=== PATIENT | male | born 1970 | race Two or more races ===

== ENCOUNTER 2022-07-03 09:36 | Emergency (ER) | payer OTHER ==
[~2022-07-03] VITALS: Ht 172.7 cm; Wt 91.0 kg
[~2022-07-03 09:36] MED LIST: GABA300C OR; HYDR-1421 OR; MIR30T PO; effexor PO; klonopin; xopenex; xopenex PO
[2022-07-03] MEDS ORDERED: IPRATROPIUM BROM 0.5 MG/2.5ML INH SOL HHN ONE (10:00)
[2022-07-03] MEDS ORDERED: ALBUTEROL SULF 2.5 MG/0.5ML(0.5%) NEB SOLN HHN ONE (10:00)
[2022-07-03 10:38] LABS: Basophils # (auto) 0.1 10 ^3/uL (0-0.2); Basophils % (auto) 0.7 % (0.0-2.0); Eosinophils # (auto) 0.6 10 ^3/uL (0-0.8); Eosinophils % (auto) 4.2 % (0.0-7.0); Hematocrit 42.5 % (41.0-53.0); Hemoglobin 14.1 g/dL (13.5-17.5); Lymphocytes # (auto) 1.7 10 ^3/uL (0.4-5.4); Lymphocytes % (auto) 11.8 % (10.0-50.0); Mean Corpuscular Hemoglobin 28.4 pg (28.0-32.0); Mean Corpuscular Hgb Conc. 33.1 g/dL (32.0-36.0); Mean Corpuscular Volume 85.7 fL (80.0-100.0); Monocytes % (auto) 6.7 % (0.0-12.0); Neutrophils # (auto) 11.2 10 ^3/uL (1.6-8.6); Neutrophils % (auto) 76.6 % (37.0-80.0); Nucleated Red Blood Cells % 0.1 %; Red Blood Cells 4.96 10^6/uL (4.5-5.90); Red Cell Distribution Width 15.5 % (11.8-14.3); White Blood Cell 14.6 10^3/uL (4.4-10.8)
[2022-07-03 11:01] LABS: Albumin 3.3 g/dL (3.4-5.0); Anion Gap 8 (5-15); Blood Urea Nitrogen 8 mg/dL (7-18); Calcium 8.7 mg/dL (8.5-10.1); Carbon Dioxide 19 mmol/L (21-32); Chloride 110 mmol/L (98-107); Glucose 91 mg/dL (74-106); Magnesium 2.4 mg/dL (1.6-2.6); Sodium 137 mmol/L (136-145)
[2022-07-03 11:02] LABS: Alanine Aminotransferase 33 U/L (16-61); Aspartate Aminotransferase 35 U/L (15-37); GFR African American 101 mL/min; GFR Non-African American 84 mL/min
[2022-07-03 11:05] LABS: Alkaline Phosphatase 91 U/L (45-117); Bilirubin, Total 0.8 mg/dL (0.2-1.0); Total Protein 7.5 g/dL (6.4-8.2)
[2022-07-03] MEDS ORDERED: METH4PAK PO (13:01)
[2022-07-03] MEDS ORDERED: AZIT1POW PO (13:01)
[2022-07-03 13:53] VITALS: BP 129/73
== END 2022-07-03 13:54 | disposition home or self-care (01) ==
LOC: ER 09:36
DX: J18.0 Bronchopneumonia, unspecified organism (principal); K21.9 Gastro-esophageal reflux disease without esophagitis; R07.89 Other chest pain; J45.909 Unspecified asthma, uncomplicated
CPT/HCPCS: 36415; 71046; 80053; 83605; 83735; 83880; 84484; 85025; 87040; 93005; 94640; 99285; J7644

== ENCOUNTER 2023-10-27 12:20 | Emergency (ER) | payer OTHER ==
[~2023-10-27] VITALS: Ht 175.3 cm; Wt 90.0 kg
[~2023-10-27 12:20] MED LIST changes: +AZIT1POW PO; +METH4PAK PO
[2023-10-27 12:54] VITALS: BP 129/79; PULSE 117; RESP 20; TEMP 98.4; O2SAT 97
[2023-10-27] MEDS: LIDOCAINE 1% HCL (LOCAL ANESTH.) INJ 20ML MDV IJ ONE (13:29)
[2023-10-27] MEDS ORDERED: CEPH250C PO (13:30)
[2023-10-27] MEDS ORDERED: NAPR-746 PO (13:30)
[2023-10-27] MEDS: TETANUS-DIPTH-ACEL PERTUSSIS 0.5ML SYR Tdap IM ONE (13:41)
== END 2023-10-27 13:43 | disposition home or self-care (01) ==
LOC: ER 12:20 → EDUNIT# 12:20 → EDBD 12:20 → ER 13:43
DX: S81.812A Laceration without foreign body, left lower leg, initial encounter (principal); M19.90 Unspecified osteoarthritis, unspecified site; J45.909 Unspecified asthma, uncomplicated; K21.9 Gastro-esophageal reflux disease without esophagitis; Z88.8 Allergy status to other drugs, medicaments and biological substances; Z79.899 Other long term (current) drug therapy; W25.XXXA Contact with sharp glass, initial encounter; Y93.89 Activity, other specified; Y92.89 Other specified places as the place of occurrence of the external cause; Y99.8 Other external cause status
CPT/HCPCS: 12004; 90471; 90715; 99283; J2001